=== PATIENT | female | born 1995 | race Caucasian/White ===

== ENCOUNTER 2019-12-14 01:36 | Emergency (ER) | payer OTHER, SELFPAY ==
[2019-12-14 01:39] VITALS: BP 138/90; PULSE 106; RESP 16; TEMP 36.8; O2SAT 99; BMI 27.9
--- NOTE | 2019-12-14 01:48 | ED_ITS ---
Entered by Lindy Funez, acting as scribe for Debby Reza MD HPI - General Adult General: Chief complaint: General Medical Stated complaint: LOWER ABD/SIDE PAIN, CHEST PAIN Time Seen by Provider: 12/14/19 01:47 Source: patient and family Mode of arrival: ambulatory Limitations: no limitations History of Present Illness: HPI narrative: 24 y/o female presents to the ED with complaint of abd discomfort and nausea. Pt states she is 5 days late on her period and she had unprotected sex on [place]. Pt states she has had weird food cravings . She has taken several at home tests and they have all been negative. Pt is here for an official test. complaint: abd discomfort Onset (ago): day(s) Location: abdomen Severity: mild Quality: aching Pain Consistency: intermittent Associated symptoms: Reports nausea; Deny headache(s), rash or vomiting Review of Systems Const: Denies: fever or chills Eyes: Denies: change in vision ENMT: Denies: throat pain or mouth pain GI: Reports: abdominal pain and nausea; Denies: vomiting or diarrhea : Denies: difficulty urinating Musc: Reports: back pain; Denies: joint pain Skin/Breast: Denies: rash Neuro: Denies: headache or behavioral changes Psych: Denies: depression Endo: Denies: excessive urination Adrian/Lymph: Denies: easy bruising All/Imm: Denies: hives PFSH ED PFSH: Statuses (acute, chronic, etc) shown below reflect problem list status as previously entered and may not be historically accurate Social History Smoking and tobacco status: current every day smoker Female Reproductive History: Date of last menstrual period: 11/15/19 Physical Exam Const: COMMON NORMALS: no apparent distress, oriented x3 and healthy appearing HENMT: COMMON NORMALS: normocephalic and external nose normal HEAD & SCALP: normocephalic NOSE: external nose normal Eye: COMMON NORMALS: PERRL PUPIL: Yes PERRL Neck/C-Spine: COMMON NORMALS: full ROM and no lymphadenopathy Chest: COMMONS NORMALS: inspection of chest normal Resp: COMMON NORMALS: normal respiratory effort, no use of accessory muscles and clear to auscultation bilaterally AUSCULTATION: clear to auscultation bilaterally Cardio: COMMON NORMALS: regular rate and regular rhythm RATE: regular rate RHYTHM: regular rhythm GI: COMMON NORMALS: normal to inspection, nondistended, normoactive bowel sounds, soft to palpation, non-tender and no masses PALPATION: Yes soft Back/Pelvis: THORACIC SPINE/UPPER BACK: Yes normal to inspection Extremity: COMMON NORMALS: normal to inspection, full ROM and normal capillary refill Neuro: COMMON NORMALS: oriented x3 Psych: COMMON NORMALS: mental status grossly normal and cooperative Skin: COMMON NORMALS: no rashes or lesions noted GENERAL SKIN EXAM: no rashes or lesions noted Course Vital Signs: Vital signs: Vital Signs Temperature 98.3 F 12/14/19 01:39 Pulse Rate 106 H 12/14/19 01:39 Respiratory Rate 16 12/14/19 01:39 Blood Pressure 138/90 12/14/19 01:39 Pulse Oximetry 99 12/14/19 01:39 MDM - General Adult MDM Narrative: Medical decision making narrative: Patient presents here with multiple complaints. Including headache and chest pain and abdominal pain and breast tenderness. Patient was also concerned she may be she is 5 days late on her period. Patient's lab work including white count and blood test were negative. Patient has no abdominal tenderness on her exam. Her vital signs here are normal as well. Patient's urine is normal no signs of urinary tract infection. Patient is stable for discharge and return if worsening. Lab Data: Labs: Lab Results 12/14/19 12/14/19 12/14/19 Range/Units 01:58 02:00 02:00 WBC 10.3 H (4.0-10.0) 10^3/ uL RBC 4.92 (4.1-5.3) 10^6/u L Hgb 14.1 (11.5-15.3) g/dL Hct 42.9 (37.0-47.0) % MCV 87.2 (81-99) fL MCH 28.7 (28.0-34.0) pg MCHC 32.9 (30.0-36.0) g/dL RDW 14.7 (12.1-15.1) % Plt Count 274 (130-400) 10^3/c mm MPV 11.9 H (7.4-10.4) fL Neut % (Auto) 49.8 % Lymph % (Auto) 37.3 % [place] % (Auto) 8.6 % Eos % (Auto) 3.4 % Baso % (Auto) 0.8 % Neut # (Auto) 5.1 (1.8-7.7) 10^3/u L Lymph # (Auto) 3.8 (0.8-4.8) 10^3/u L [place] # (Auto) 0.9 (0.2-0.9) 10^3/u L Eos # (Auto) 0.4 (0.0-0.8) 10^3/u L Baso # (Auto) 0.1 (0.0-0.1) 10^3/u L Nucleated RBC % (a uto) 0 % Nucleated RBCs # 0.0 /100WBC Sodium 140 (136-145) mmol/L Potassium 3.9 (3.5-5.1) mmol/L Chloride 103 (98-107) mmol/L Carbon Dioxide 23 (22-29) mmol/L Anion Gap 17.9 (5-19) BUN 12 (6-20) mg/dL Creatinine 0.6 (0.5-0.9) mg/dL GFR Calculation 123.9 (90-130) mL/min Glucose 86 (74-109) mg/dL Calcium 9.8 (8.6-10.0) mg/Dl Total Bilirubin 0.2 (0.15-1.2) mg/dL AST 14 (0-32) U/L ALT 15 (0-33) U/L Alkaline Phosphata se 90 (35-105) IU/L Total Protein 7.5 (6.6-8.7) g/dL Albumin 4.8 (3.5-5.2) g/dL Globulin 2.7 (1.3-4.6) g/dL Lipase 20 (13-60) U/L Ser , Karla i-Qnt 0.50 mIU/mL Urine Color Yellow (Yellow) Urine Appearance Clear (CLEAR) Urine pH 5 (5-7) Ur Specific Gravit y 1.025 (1.005-1.030) Urine Protein Neg (Negative) Urine Glucose (UA) Norm (Normal) Urine Ketones Negative (Negative) Urine Occult Blood Neg (Negative) Urine Nitrate Negative (Negative) Urine Bilirubin Neg (NEGATIVE) Urine Urobilinogen 1 H (Negative) mg/dL Ur Leukocyte Dania ase Negative (Negative) Discharge Plan Discharge Patient Disposition: Home, Self-Care Clinical Impression: Atypical chest pain Abdominal pain Qualifiers: Abdominal location: generalized Qualified Code(s): R10.84 - Generalized abdominal pain Condition: Stable Prescriptions: No Action No Known Home Medications RF: 0 Discharge Orders: Discharge Order (Routine); Ordered 12/14/19 Ordered By: Debby Reza Referrals: Alix Bonilla MD [Family Provider] - Discharge Diet: Advance as tolerated Discharge Activity: Resume usual activity Patient Instructions: Abdominal Pain (ED) Coding Level of Care Code ED Flour Tester for Chg Fwd Exam Problem Focused The documentation recorded by the Armin julian Ashley, accurately reflects the service I personally performed and the decisions made by Juaquin bloom Korby, MD Dec 14, 2019 01:36
--- NOTE | 2019-12-14 01:52 | XR_ITS ---
WS: [id number] CHEST 2 VIEWS HISTORY: cp COMPARISON: 12/27/2018 Lungs: Clear with no abnormality. No pleural effusion or pneumothorax. Cardiac size: Normal. Mediastinum/Aorta: Normal mediastinum. Bones: Normal. XR/XR chest 2V* [id number] IMPRESSION: Normal chest.
[2019-12-14] MEDS: ondansetron 4 MG Tablet PO (02:02)
[2019-12-14 02:04] LABS: Add Urine Microscopic? NO
[2019-12-14 02:06] LABS: Blood Urine Neg (Negative); Glucose Urine UA Norm (Normal); Ketones Urine Negative (Negative); Nitrate Urine Negative (Negative); Protein Urine Neg (Negative); Specific Gravity, Urine 1.025 (1.005-1.030); Urine Appearance Clear (CLEAR); Urine Color Yellow (Yellow); pH Urine 5 (5-7)
[2019-12-14 02:07] LABS: Leukocyte Esterase Urine Negative (Negative)
[2019-12-14 02:08] LABS: Urobilinogen Urine 1 mg/dL (Negative)
[2019-12-14 02:09] LABS: Bilirubin Urine Neg (NEGATIVE)
[2019-12-14 02:43] LABS: Alanine Aminotransferase 15 U/L (0-33); Albumin Level 4.8 g/dL (3.5-5.2); Alkaline Phosphatase 90 IU/L (35-105); Anion Gap 17.9 (5-19); Aspartate Amino Transferase 14 U/L (0-32); Basophils # 0.1 10^3/uL (0.0-0.1); Basophils % 0.8 %; Blood Urea Nitrogen 12 mg/dL (6-20); Calcium 9.8 mg/Dl (8.6-10.0); Carbon Dioxide 23 mmol/L (22-29); Chloride 103 mmol/L (98-107); Eosinophils # 0.4 10^3/uL (0.0-0.8); Eosinophils % 3.4 %; Globulin 2.7 g/dL (1.3-4.6); Glomerular Filtration Rate 123.9 mL/min (90-130); Glucose 86 mg/dL (74-109); Hematocrit 42.9 % (37.0-47.0); Hemoglobin 14.1 g/dL (11.5-15.3); Lipase 20 U/L (13-60); Lymphocytes # 3.8 10^3/uL (0.8-4.8); Lymphocytes % 37.3 %; Mean Corpuscular HGB Conc 32.9 g/dL (30.0-36.0); Mean Corpuscular Hemoglobin 28.7 pg (28.0-34.0); Mean Corpuscular Volume 87.2 fL (81-99); Mean Platelet Volume 11.9 fL (7.4-10.4); Monocytes # 0.9 10^3/uL (0.2-0.9); Monocytes % 8.6 %; Neutrophils # 5.1 10^3/uL (1.8-7.7); Neutrophils % 49.8 %; Nucleated Red Blood Cells % 0 %; Platelet Count 274 10^3/cmm (130-400); Potassium 3.9 mmol/L (3.5-5.1); Red Blood Count 4.92 10^6/uL (4.1-5.3); Red Cell Distribution Width 14.7 % (12.1-15.1); Sodium 140 mmol/L (136-145); Total Bilirubin 0.2 mg/dL (0.15-1.2); Total Protein 7.5 g/dL (6.6-8.7); White Blood Count 10.3 10^3/uL (4.0-10.0)
== END 2019-12-14 03:43 | disposition home or self-care (01) ==
PROVIDERS: Emergency Provider Emergency Medicine; Family Provider Family Medicine
DX: R10.84 Generalized abdominal pain (principal); R07.89 Other chest pain; F17.210 Nicotine dependence, cigarettes, uncomplicated
CPT/HCPCS: 36415; 71046; 80053; 81003; 83690; 84702; 85025; 99281; 99283; Q0162